=== PATIENT | male | born 1975 | race Caucasian/White ===

== ENCOUNTER 2019-01-22 03:56 | Inpatient (IN) | payer OTHER ==
[~2019-01-22] VITALS: Ht 180.3 cm; Wt 159.7 kg
[2019-01-22] MEDS ORDERED: CARVEDILOL3.125 M1 PO (04:23)
[2019-01-22] MEDS ORDERED: LASIX40 MG PO (04:23)
[2019-01-22] MEDS ORDERED: LIPI20 PO (04:23)
[2019-01-22] MEDS ORDERED: ASPIRIN CHILDRE81 MG PO (04:24)
[2019-01-22 04:41] LABS: BASOPHIL % 0.6 % (0-2); PLATELET COUNT 221 x10^3mcL (130-400)
[2019-01-22 04:42] LABS: RED CELL DISTRIBUTION WIDTH 16.7 % (11.5-14.5)
[2019-01-22 04:52] LABS: CALCIUM 8.5 mg/dL (8.5-10.1); CARBON DIOXIDE 24.4 mmol/L (21-32); CHLORIDE SERUM 105 mmol/L (98-107); CREATININE SERUM 1.5 mg/dL (0.7-1.3); GFR1 54 mL/min; GLUCOSE SERUM 144 mg/dL (74-106); POTASSIUM SERUM 3.4 mmol/L (3.5-5.1); SODIUM SERUM 140 mmol/L (136-145)
[2019-01-22 04:59] LABS: UA SPECIFIC GRAVITY 1.025 (1.005-1.035); microscopic required? YES; urine erythrocyte NEGATIVE (NEGATIVE)
[2019-01-22 05:05] LABS: ALKALINE PHOSPHATASE 104 U/L (46-116); ALT/SGPT 22 U/L (16-63); AST/SGOT 23 U/L (15-37); BILIRUBIN TOTAL 1.03 mg/dL (0.20-1.00); FREE T4 1.29 ng/dL (0.76-1.46); TOTAL PROTEIN, SERUM 7.4 g/dL (6.4-8.2)
[2019-01-22 05:06] LABS: ALBUMIN 3.1 g/dL (3.4-5.0)
[2019-01-22 05:27] LABS: AMPHETAMINE QUAL UR POSITIVE (See below)
[2019-01-22 08:22] LABS: PHOSPHOROUS 3.5 mg/dL (2.5-4.9)
[2019-01-22 08:30] LABS: CHOLESTEROL/HDL RATIO 4.2
[2019-01-22 09:53] VITALS: BP 137/87
[2019-01-22 12:09] VITALS: BP 130/86
[2019-01-22 16:21] VITALS: BP 125/90
[2019-01-22 17:59] VITALS: BP 125/90
[2019-01-22 21:19] VITALS: BP 115/88
[2019-01-23 06:01] VITALS: BP 121/89
[2019-01-23 06:40] LABS: CALCIUM 8.9 mg/dL (8.5-10.1); CARBON DIOXIDE 22.7 mmol/L (21-32); CHLORIDE SERUM 104 mmol/L (98-107); CREATININE SERUM 1.2 mg/dL (0.7-1.3); GFR1 > 60 mL/min; GLUCOSE SERUM 177 mg/dL (74-106); POTASSIUM SERUM 3.6 mmol/L (3.5-5.1); SODIUM SERUM 138 mmol/L (136-145)
[2019-01-23 06:41] LABS: BASOPHIL % 0.4 % (0-2); PLATELET COUNT 237 x10^3mcL (130-400)
[2019-01-23 06:51] LABS: RED CELL DISTRIBUTION WIDTH 16.6 % (11.5-14.5)
[2019-01-23 08:50] VITALS: BP 150/95
[2019-01-23 12:10] VITALS: BP 11/86
[2019-01-23 17:36] VITALS: BP 123/98
[2019-01-23 20:52] VITALS: BP 125/68
[2019-01-24 05:45] VITALS: BP 119/78
[2019-01-24 07:24] LABS: CARBON DIOXIDE 25.7 mmol/L (21-32); CHLORIDE SERUM 102 mmol/L (98-107); POTASSIUM SERUM 3.8 mmol/L (3.5-5.1); SODIUM SERUM 140 mmol/L (136-145)
[2019-01-24 07:26] LABS: BASOPHIL % 0.8 % (0-2); PLATELET COUNT 251 x10^3mcL (130-400)
[2019-01-24 07:27] LABS: RED CELL DISTRIBUTION WIDTH 16.8 % (11.5-14.5)
[2019-01-24 07:31] LABS: CREATININE SERUM 1.3 mg/dL (0.7-1.3); GFR1 > 60 mL/min; GLUCOSE SERUM 165 mg/dL (74-106)
[2019-01-24 09:10] VITALS: BP 131/89
[2019-01-24 12:28] VITALS: BP 102/71
[2019-01-24 17:25] VITALS: BP 117/91
[2019-01-24 19:14] VITALS: Ht 180.3 cm; Wt 159.7 kg
[2019-01-24 20:34] VITALS: BP 127/82
[2019-01-25] VITALS (7 sets, daily range): BP systolic 106–137; BP diastolic 61–96
[2019-01-26 05:39] LABS: BASOPHIL % 0.8 % (0-2); PLATELET COUNT 207 x10^3mcL (130-400)
[2019-01-26 05:42] VITALS: BP 103/66
[2019-01-26 05:54] LABS: CALCIUM 9.2 mg/dL (8.5-10.1); CARBON DIOXIDE 25.1 mmol/L (21-32); CHLORIDE SERUM 104 mmol/L (98-107); CREATININE SERUM 1.3 mg/dL (0.7-1.3); GFR1 > 60 mL/min; GLUCOSE SERUM 108 mg/dL (74-106); POTASSIUM SERUM 3.7 mmol/L (3.5-5.1); SODIUM SERUM 141 mmol/L (136-145)
[2019-01-26 07:00] LABS: RED CELL DISTRIBUTION WIDTH 16.7 % (11.5-14.5)
[2019-01-26 08:25] VITALS: BP 128/87
[2019-01-26 11:52] VITALS: BP 107/71
[2019-01-26 15:55] VITALS: BP 100/63
[2019-01-26 20:41] VITALS: BP 122/92
[2019-01-27 05:24] VITALS: BP 123/66
[2019-01-27 07:07] LABS: BASOPHIL % 0.8 % (0-2); PLATELET COUNT 206 x10^3mcL (130-400)
[2019-01-27 07:16] LABS: RED CELL DISTRIBUTION WIDTH 17.6 % (11.5-14.5)
[2019-01-27 07:33] LABS: CALCIUM 9.2 mg/dL (8.5-10.1); CARBON DIOXIDE 30.6 mmol/L (21-32); CREATININE SERUM 1.4 mg/dL (0.7-1.3); POTASSIUM SERUM 4.1 mmol/L (3.5-5.1)
[2019-01-27 09:34] VITALS: BP 102/68
[2019-01-27 12:49] VITALS: BP 122/82
[2019-01-27 17:50] VITALS: BP 104/68
[2019-01-27 20:06] VITALS: BP 115/83
[2019-01-28 04:51] VITALS: BP 105/55
[2019-01-28 07:35] LABS: CALCIUM 9.5 mg/dL (8.5-10.1); CARBON DIOXIDE 24.7 mmol/L (21-32); CHLORIDE SERUM 105 mmol/L (98-107); CREATININE SERUM 1.2 mg/dL (0.7-1.3); GFR1 > 60 mL/min; GLUCOSE SERUM 106 mg/dL (74-106); POTASSIUM SERUM 3.7 mmol/L (3.5-5.1); SODIUM SERUM 142 mmol/L (136-145)
[2019-01-28 08:24] LABS: BASOPHIL % 0.7 % (0-2); PLATELET COUNT 196 x10^3mcL (130-400)
[2019-01-28 08:26] LABS: RED CELL DISTRIBUTION WIDTH 17.3 % (11.5-14.5)
[2019-01-28] MEDS ORDERED: CLEOCIN HCL300 MG PO (08:38)
[2019-01-28] MEDS ORDERED: METFORMIN HCL500 MG PO (08:47)
[2019-01-28 09:25] VITALS: BP 124/79
[2019-01-28 12:31] VITALS: BP 123/87
[2019-01-28 13:41] VITALS: BP 123/87
[2019-01-28 16:48] VITALS: BP 126/87
[2019-01-28 21:00] VITALS: BP 112/87
[2019-01-29 05:40] VITALS: BP 108/72
[2019-01-29 08:46] VITALS: BP 102/62
[2019-01-29] MEDS ORDERED: VANCO 1 GR1 GM/150 M IV (12:17)
== END 2019-01-29 14:50 | DRG 139 ==
LOC: ED 03:56 → MU 06:15 → DU 06:15 → MU 01-28 13:38
PROVIDERS: Emergency Medicine; Internal Medicine; ADMIT General Practice
DX: J15.9 Unspecified bacterial pneumonia (principal); N17.0 Acute kidney failure with tubular necrosis; J96.01 Acute respiratory failure with hypoxia; I13.0 Hypertensive heart and chronic kidney disease with heart failure and stage 1 through stage 4 chronic kidney disease, or unspecified chronic kidney disease; E11.22 Type 2 diabetes mellitus with diabetic chronic kidney disease; E44.0 Moderate protein-calorie malnutrition; I50.43 Acute on chronic combined systolic (congestive) and diastolic (congestive) heart failure; N39.0 Urinary tract infection, site not specified; Z68.42 Body mass index [BMI] 45.0-49.9, adult; E87.6 Hypokalemia; F15.10 Other stimulant abuse, uncomplicated; N18.9 Chronic kidney disease, unspecified; J44.0 Chronic obstructive pulmonary disease with (acute) lower respiratory infection; E78.5 Hyperlipidemia, unspecified; E66.2 Morbid (severe) obesity with alveolar hypoventilation; Z59.0 Homelessness; Z79.82 Long term (current) use of aspirin; Z79.899 Other long term (current) drug therapy; F17.210 Nicotine dependence, cigarettes, uncomplicated; Z86.73 Personal history of transient ischemic attack (TIA), and cerebral infarction without residual deficits; Z91.19 Patient's noncompliance with other medical treatment and regimen; Z79.84 Long term (current) use of oral hypoglycemic drugs
CPT/HCPCS: 36600; 82962; 83880; 84439; G0480; J0456; J0696; J1200; J1644; J1940; J2060; J3370; J7050; J7620; Q0092; Q0163